=== PATIENT | female | born 1990 | race Caucasian/White ===

== ENCOUNTER 2021-05-24 19:06 | Emergency (ER) | payer SELFPAY ==
[~2021-05-24] VITALS: Ht 165 cm; Wt 154.0 kg
[2021-05-24 19:56] LABS: BILIRUBIN,URINE NEGATIVE (NEGATIVE); COLOR,URINE RED; GLUCOSE, URINE (UA) NEGATIVE (NEGATIVE); KETONES,URINE NEGATIVE (NEGATIVE); LEUKOCYTE ESTERASE ,URINE NEGATIVE (NEGATIVE); NITRITE,URINE NEGATIVE (NEGATIVE); PROTEIN,URINE 1+ (NEGATIVE)
[2021-05-24] MEDS ORDERED: NS 100 ML (IVPB) BAG IV ONE (20:00)
[2021-05-24] MEDS ORDERED: IOHEXOL 350 MG/ML 150 ML (OMNIPAQUE 350) VIAL IV ONE (20:00)
[2021-05-24] MEDS ORDERED: CATHETER FLUSH 10 ML SYR IV PRN (20:00)
[2021-05-24] MEDS ORDERED: HOLD METFORMIN - RECEIVED CONTRAST 20 ML VIAL IV SCH (20:00)
[2021-05-24 20:12] LABS: CLARITY,URINE CLOUDY
[2021-05-24 20:13] LABS: AMORPHOUS SEDIMENT,UR FEW AMOR URATES /LPF; BACTERIA,URINE FEW /HPF; RBC,URINE >100 /HPF
[2021-05-24 20:21] LABS: BASOPHILS # (AUTO) 0.1 10^3/uL (0.0-0.1); BASOPHILS % (AUTO) 1 % (0-10); EOSINOPHILS # (AUTO) 0.2 10^3/uL (0.0-0.3); EOSINOPHILS % (AUTO) 2 % (0-10); HEMATOCRIT 44 % (35-52); LYMPHOCYTES % (AUTO) 37 % (12-44); MEAN CORPUSCULAR HEMOGLOBIN 28 pg (25-34); MEAN CORPUSCULAR HGB CONC 34 g/dL (32-36); MEAN CORPUSCULAR VOLUME 83 fL (80-99); MEAN PLATELET VOLUME 10.8 fL (9.0-12.2); MONOCYTES # (AUTO) 0.6 10^3/uL (0.0-1.0); MONOCYTES % (AUTO) 7 % (0-12); NEUTROPHILS # (AUTO) 4.3 10^3/uL (1.8-7.8); NEUTROPHILS % (AUTO) 54 % (42-75); PLATELET COUNT 277 10^3/uL (130-400); WHITE BLOOD COUNT 8.1 10^3/uL (4.3-11.0)
[2021-05-24 20:51] LABS: ALANINE AMINOTRANSFERASE 33 U/L (0-55); ALBUMIN 4.6 GM/DL (3.2-4.5); ALKALINE PHOSPHATASE 84 U/L (40-136); BILIRUBIN,TOTAL 0.5 MG/DL (0.1-1.0); BUN/CREATININE RATIO 29; CALCIUM 9.4 MG/DL (8.5-10.1); CARBON DIOXIDE 23 MMOL/L (21-32); CHLORIDE 104 MMOL/L (98-107); CREATININE SERUM 0.58 MG/DL (0.60-1.30); GFR ESTIMATED 126; GLUCOSE 96 MG/DL (70-105); SODIUM 140 MMOL/L (135-145); TOTAL PROTEIN 7.7 GM/DL (6.4-8.2)
--- NOTE | 2021-05-24 20:57 | Diagnostic Imaging Report ---
EXAMINATION: CT abdomen and pelvis with and without intravenous contrast. TECHNIQUE: Precontrast acquisitions were acquired through the abdomen and pelvis. Multiple contiguous axial images were obtained through the abdomen and pelvis after the administration of intravenous contrast. All CT scans use one or more of the following dose optimizing techniques: automated exposure control, MA and/or KvP adjustment based on patient size and exam type or iterative reconstruction. HISTORY: Menorrhagia for 6 months COMPARISON: None available. FINDINGS: Lung bases: The lung bases are clear. Solid organs: The liver is normal without focal lesion. The gallbladder is normal. There is no biliary ductal dilation. Pancreas is normal. Spleen is normal. Adrenal glands are normal. The kidneys are normal without hydronephrosis. Bowel: The stomach and small bowel are normal without obstruction. The colon and appendix are normal. Peritoneum: There is no intraperitoneal free fluid or free air. No suspicious lymphadenopathy. Vasculature: Normal without aneurysm. Musculoskeletal: Degenerative changes of the spine without suspicious osseous lesion or compression fracture. Pelvis: The uterus and adnexa are normal. The urinary bladder is normal. IMPRESSION: No acute abnormality in the abdomen or pelvis. Dictated by: Dictated on workstation # [id number]
--- NOTE | 2021-05-24 21:01 | ED General ---
General Chief Complaint: General Problems/Pain Stated Complaint: LOWER BACK/ABD PAIN Nursing Triage Note: Patient c/o abd/back pain x2 days. Reports she has had her period for 6 months straight and has been seen by a physician w/ no change in bleeding. History of Present Illness Date Seen by Provider: May 24, 2021 Time Seen by Provider: 19:15 Initial Comments 30 yr F is here with c/o continuous menstrual bleeding for the past 6 months. Pt began having lower abdominal pain and back pain for the past 2 days. Pt changes approximately 8 or more sanitary napkins per day. Pt does not have a PCP or MARKETING OUTREACH COORDINATOR, so she has not seen a doctor at all. Denies chest pain, fever, diarrhea, dysuria, shortness of breath. Allergies and Home Medications Allergies Coded Allergies: No Known Drug Allergies (Unverified , 05/24/21) Patient Home Medication List Home Medication List Reviewed: Yes Review of Systems Review of Systems Constitutional: no symptoms reported EENTM: no symptoms reported Respiratory: no symptoms reported Cardiovascular: no symptoms reported Gastrointestinal: RLQ, LLQ, abdominal pain (RLQ/ LLQ) Genitourinary: hematuria : No Musculoskeletal: no symptoms reported Skin: no symptoms reported Psychiatric/Neurological: No Symptoms Reported Hematologic/Lymphatic: No Symptoms Reported Immunological/Allergic: no symptoms reported Past Reefcdw-Mwtydi-Fvmjco Hx Patient Social History Tobacco Use?: No Use of E-Cig and/or Vaping dev: No Substance use?: No Alcohol Use?: No Pt feels they are or have been: No Past Medical History Last Menstrual Period: May 24, 2021 Physical Exam Vital Signs Vital Signs - First Documented 05/24/21 19:10 Temp 36.1 Pulse 102 Resp 18 B/P (MAP) 151/92 (111) Pulse Ox 100 O2 Delivery Room Air Capillary Refill : Less Than 3 Seconds Height, Weight, BMI Height: '" Weight: lbs. oz. kg; 56.00 BMI Method: General Appearance: No Apparent Distress, Obese HEENT: PERRL/EOMI Neck: Full Range of Motion, Non Tender, Supple Respiratory: Chest Non Tender, Lungs Clear, Normal Breath Sounds Cardiovascular: Regular Rate, Rhythm, No Edema Gastrointestinal: Normal Bowel Sounds, Non Tender, Soft Back: No CVA Tenderness, Other (low backpain which corresponds anteriorly with pelvic pain) Extremity: Non Tender Neurologic/Psychiatric: Alert, Oriented x3, No Motor/Sensory Deficits Skin: Normal Color Lymphatic: No Adenopathy Progress/Results/Core Measures Suspected Sepsis SIRS Temperature: Pulse: 102 Respiratory Rate: 18 Laboratory Tests 05/24/21 20:13: White Blood Count 8.1 Blood Pressure 151 /92 Mean: 111 Laboratory Tests 05/24/21 20:13: Creatinine 0.58L, Platelet Count 277, Total Bilirubin 0.5 Results/Orders Lab Results Laboratory Tests Test 05/24/21 19:10 05/24/21 20:13 Range/Units Urine Color RED H Urine Clarity CLOUDY H Urine pH 7.0 5-9 Urine Specific Amity 1.025 H 1.016-1.022 Urine Protein 1+ H NEGATIVE Urine Glucose (UA) NEGATIVE NEGATIVE Urine Ketones NEGATIVE NEGATIVE Urine Nitrite NEGATIVE NEGATIVE Urine Bilirubin NEGATIVE NEGATIVE Urine Urobilinogen 0.2 < = 1.0 MG/DL Urine Leukocyte Esterase NEGATIVE NEGATIVE Urine RBC (Auto) 3+ H NEGATIVE Urine RBC >100 H /HPF Urine WBC 2-5 /HPF Urine Squamous Epithelial Cells 2-5 /HPF Urine Crystals PRESENT H /LPF Urine Amorphous Sediment FEW REBEKAH URATES H /LPF Urine Bacteria FEW H /HPF Urine Casts NONE /LPF Urine Mucus SMALL H /LPF Urine Culture Indicated NO Urine Test NEGATIVE NEGATIVE White Blood Count 8.1 4.3-11.0 10^3/uL Red Blood Count 5.35 H 3.80-5.11 10^6/uL Hemoglobin 15.0 11.5-16.0 g/dL Hematocrit 44 35-52 % Mean Corpuscular Volume 83 80-99 fL Mean Corpuscular Hemoglobin 28 25-34 pg Mean Corpuscular Hemoglobin Concent 34 32-36 g/dL Red Cell Distribution Width 13.0 10.0-14.5 % Platelet Count 277 130-400 10^3/uL Mean Platelet Volume 10.8 9.0-12.2 fL Immature Granulocyte % (Auto) 0 % Neutrophils (%) (Auto) 54 42-75 % Lymphocytes (%) (Auto) 37 12-44 % Monocytes (%) (Auto) 7 0-12 % Eosinophils (%) (Auto) 2 0-10 % Basophils (%) (Auto) 1 0-10 % Neutrophils # (Auto) 4.3 1.8-7.8 10^3/uL Lymphocytes # (Auto) 3.0 1.0-4.0 10^3/uL Monocytes # (Auto) 0.6 0.0-1.0 10^3/uL Eosinophils # (Auto) 0.2 0.0-0.3 10^3/uL Basophils # (Auto) 0.1 0.0-0.1 10^3/uL Immature Granulocyte # (Auto) 0.0 0.0-0.1 10^3/uL Sodium Level 140 135-145 MMOL/L Potassium Level 4.0 3.6-5.0 MMOL/L Chloride Level 104 98-107 MMOL/L Carbon Dioxide Level 23 21-32 MMOL/L Anion Gap 13 5-14 MMOL/L Blood Urea Nitrogen 17 7-18 MG/DL Creatinine 0.58 L 0.60-1.30 MG/DL Estimat Glomerular Filtration Rate 126 BUN/Creatinine Ratio 29 Glucose Level 96 70-105 MG/DL Calcium Level 9.4 8.5-10.1 MG/DL Corrected Calcium 8.5-10.1 MG/DL Magnesium Level 2.0 1.6-2.4 MG/DL Total Bilirubin 0.5 0.1-1.0 MG/DL Aspartate Amino Transf (AST/SGOT) 17 5-34 U/L Alanine Aminotransferase (ALT/SGPT) 33 0-55 U/L Alkaline Phosphatase 84 40-136 U/L Total Protein 7.7 6.4-8.2 GM/DL Albumin 4.6 H 3.2-4.5 GM/DL My Orders Orders - SONIA RAYO MD Ua Culture If Indicated (05/24/21 19:43) Cbc With Automated Diff (05/24/21 19:43) Comprehensive Metabolic Panel (05/24/21 19:43) Hcg,Qualitative Urine (05/24/21 19:43) Magnesium (05/24/21 19:43) Ct Abdomen/Pelvis W Wo (05/24/21 19:43) Iohexol Injection (Omnipaque 350 Mg/Ml 1 (05/24/21 20:00) Received Contrast (Hold Metformin- Contr (05/24/21 20:00) Sodium Chloride Flush (Catheter Flush Sy (05/24/21 20:00) Ns (Ivpb) (Sodium Chloride 0.9% Ivpb Bag (05/24/21 20:00) Toradol 15 Mg Ivp (05/24/21 21:30) Medications Given in ED Current Medications Medications Dose Ordered Sig/Cheri Route Start Time Stop Time Status Last Admin Dose Admin Iohexol 150 ml ONCE ONCE IV 05/24/21 20:00 05/24/21 20:01 DC 05/24/21 20:35 125 ML Sodium Chloride 10 ml NEEDED PRN IV 05/24/21 20:00 05/24/21 20:35 10 ML Sodium Chloride 100 ml ONCE ONCE IV 05/24/21 20:00 05/24/21 20:01 DC 05/24/21 20:35 100 ML Vital Signs/I&O 05/24/21 19:10 Temp 36.1 Pulse 102 Resp 18 B/P (MAP) 151/92 (111) Pulse Ox 100 O2 Delivery Room Air Capillary Refill : Less Than 3 Seconds Blood Pressure Mean: 111 Progress Note : Progress Note 1. MENORRHAGIA WITH PELVIC PAIN: - CT ABD WITH CONTRAST: - Labs normal, with normal Hb. - UA unremarkable except RBC's - Make an appointment with PCP and MARKETING OUTREACH COORDINATOR SCOTT Stay hydrated, weight loss NSAID prn PAIN -The patient was seen in the ED, and treated appropriately to presentation at a specific point in time. Patient is informed that there is a possibility that disease and illness can evolve and change in acuity rapidly or slowly after patient is discharged from the ER. Precautionary advice given to the patient for immediate return to ER if symptoms worsen or do not resolve, and to seek emergency care sooner rather than later. Pt also advised on the importance of PCP follow up and compliance with management and follow up plan. Pt verbally expressed understanding. Diagnostic Imaging Diagonstic Imaging: CT Plain Films/CT/US/NM/MRI: abdomen Comments [place] NAME: LUDIN TRAVIS [facility] REC#: [id number] PT STATUS: REG ER : 1990 PHYSICIAN: SONIA RAYO MD ADMIT DATE: 05/24/21/ER FS Signed Date of Exam:05/24/21 CT ABDOMEN/PELVIS W WO EXAMINATION: CT abdomen and pelvis with and without intravenous contrast. TECHNIQUE: Precontrast acquisitions were acquired through the abdomen and pelvis. Multiple contiguous axial images were obtained through the abdomen and pelvis after the administration of intravenous contrast. All CT scans use one or more of the following dose optimizing techniques: automated exposure control, MA and/or KvP adjustment based on patient size and exam type or iterative reconstruction. HISTORY: Menorrhagia for 6 months COMPARISON: None available. FINDINGS: Lung bases: The lung bases are clear. Solid organs: The liver is normal without focal lesion. The gallbladder is normal. There is no biliary ductal dilation. Pancreas is normal. Spleen is normal. Adrenal glands are normal. The kidneys are normal without hydronephrosis. Bowel: The stomach and small bowel are normal without obstruction. The colon and appendix are normal. Peritoneum: There is no intraperitoneal free fluid or free air. No suspicious lymphadenopathy. Vasculature: Normal without aneurysm. Musculoskeletal: Degenerative changes of the spine without suspicious osseous lesion or compression fracture. Pelvis: The uterus and adnexa are normal. The urinary bladder is normal. IMPRESSION: No acute abnormality in the abdomen or pelvis. Dictated by: Dictated on workstation # [id number] Dict: 05/24/212051 Trans: 05/24/212056 [facility] [id number] Interpreted by: JERRY SOLARES DO Electronically signed by: JERRY SOLARES DO 05/24/212056 Departure Impression Primary Impression: Pelvic cramping Additional Impression: Menorrhagia with irregular cycle Disposition: 01 HOME, SELF-CARE Condition: Stable Departure-Patient Inst. Referrals: NO,LOCAL PHYSICIAN (PCP/Family) Primary Care Physician Patient Instructions: Heavy Periods ED, Bleeding Between Periods, Pelvic Pain ED Add. Discharge Instructions: Make an appointment with PCP and MARKETING OUTREACH COORDINATOR SCOTT Stay hydrated, weight loss NSAID prn PAIN All discharge instructions reviewed with patient and/or family. Voiced understanding. Work/School Note: Work Release Form Date Seen in the Emergency Department: May 24, 2021 Return to Work: May 27, 2021 SONIA RAYO MD May 24, 2021 21:01
[2021-05-24] MEDS ORDERED: KETOROLAC 30 MG/ML VIAL IV ONE (21:30)
[2021-05-24 21:38] VITALS: BP 154/92
== END 2021-05-24 21:39 | disposition home or self-care (01) ==
LOC: ER FS 19:08
DX: N92.0 Excessive and frequent menstruation with regular cycle (principal); E66.9 Obesity, unspecified; Z68.43 Body mass index [BMI] 50.0-59.9, adult
CPT/HCPCS: 36415; 74178; 80053; 81000; 83735; 84703; 85025; Q9967

== ENCOUNTER 2022-01-17 14:56 | Emergency (ER) | payer SELFPAY ==
[~2022-01-17] VITALS: Ht 165 cm; Wt 166.0 kg
[2022-01-17] MEDS ORDERED: ANTACID SUSP 30 ML UDC (MYLANTA) PO ONE (15:30)
[2022-01-17] MEDS ORDERED: LIDOCAINE 2% VISCOUS 15 ML UDC PO ONE (15:30)
--- NOTE | 2022-01-17 15:33 | ED General ---
General Chief Complaint: Abdominal/GI Problems Stated Complaint: SOB Nursing Triage Note: PT HAS BEEN HAVING REFLUX AND BURNING X 3 DAYS. SHE REPORTS HER ESOPHAGUS AND THROAT BURN SOMETIMES TOO. Source of Information: Patient History of Present Illness Date Seen by Provider: Jan 17, 2022 Time Seen by Provider: 14:59 Initial Comments 31-year-old female presenting with complaints of 3 days of burning and pain in her middle of the chest. She states it feels like a time she swallows something that her esophagus is burning and getting narrow. She has not been eating or drinking very much because of the pain with swallowing. She denies having symptoms like this previously. She has no fever, chills, cough, shortness of breath, abdominal pain, nausea, vomiting, pain with urination, change in her bowels. Timing/Duration: 3-4 Days Severity: Severe Modifying Factors: worse with Eating Associated Systoms: No Cough, No Diaphoresis, No Fever/Chills, No Headaches, No Loss of Appetite, No Malaise, No Nausea/Vomiting, No Rash, No Seizure, No Shortness of Air, No Syncope, No Weakness Allergies and Home Medications Allergies Coded Allergies: No Known Drug Allergies (Unverified , 05/24/21) Patient Home Medication List Home Medication List Reviewed: Yes Pantoprazole Sodium (Pantoprazole Sodium) 40 Mg Tablet.dr, 40 MG PO DAILY Prescribed by: LINDA LIMA on 01/17/221555 Sucralfate (Carafate) 1 Gram Tablet, 1 GM PO QID Prescribed by: LINDA LIMA on 01/17/221555 Review of Systems Review of Systems Constitutional: No chills, No fever EENTM: no symptoms reported Respiratory: no symptoms reported Cardiovascular: see HPI Gastrointestinal: No abdominal pain, No diarrhea, No nausea, No vomiting Genitourinary: No dysuria, No frequency, No hematuria Musculoskeletal: no symptoms reported Skin: No rash Psychiatric/Neurological: Anxiety Past Ksfndex-Xpxjak-Gnfccv Hx Patient Social History Tobacco Use?: No Use of E-Cig and/or Vaping dev: No Substance use?: No Alcohol Use?: No Pt feels they are or have been: No Immunizations Up To Date First/Initial COVID19 Vaccinat: 2020 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 oz. kg; 60.00 BMI Method: General Appearance: No Apparent Distress, Obese HEENT: PERRL/EOMI, Pharynx Normal Neck: Full Range of Motion, Normal Inspection, Non Tender, Supple Respiratory: Chest Non Tender, Lungs Clear, Normal Breath Sounds, No Accessory Muscle Use, No Respiratory Distress Cardiovascular: Normal Peripheral Pulses, Tachycardia (104 heart rate on my exam) Gastrointestinal: Normal Bowel Sounds, No Pulsatile Mass, Non Tender, Soft Extremity: Normal Capillary Refill, Normal Inspection, No Pedal Edema Neurologic/Psychiatric: Alert, Oriented x3, vocational rehabilitation teacher II-XII Norm as Tested Skin: Normal Color, Warm/Dry Progress/Results/Core Measures Suspected Sepsis SIRS Temperature: Pulse: 120 Respiratory Rate: 16 Blood Pressure 162 /103 Mean: 122 Results/Orders My Orders Orders - LINDA LIMA MD Lidocaine 2% Viscous 15 Ml (Xylocaine Vi (01/17/22 15:30) Antacid Suspension (Mylanta Suspension (01/17/22 15:30) Medications Given in ED Current Medications Medications Dose Ordered Sig/Cheri Route Start Time Stop Time Status Last Admin Dose Admin Al Hydrox/Mg Hydrox/Simethicone 30 ml ONCE ONCE PO 01/17/22 15:30 01/17/22 15:31 DC 01/17/22 15:22 30 ML Lidocaine HCl 15 ml ONCE ONCE PO 01/17/22 15:30 01/17/22 15:31 DC 01/17/22 15:22 15 ML Vital Signs/I&O 01/17/22 01/17/22 15:00 15:44 Temp 36.2 36.2 Pulse 120 120 Resp 16 16 B/P (MAP) 162/103 (122) 162/103 Pulse Ox 99 99 O2 Delivery Room Air Room Air Capillary Refill : Less Than 3 Seconds Blood Pressure Mean: 122 Progress Note #1: Progress Note Try GI cocktail to see if that helps the burning and sharp pain with swallowing. If this is helping will continue carafate and pantoprazole with encouragement to see/establish with PCP. If not helping will check labs and chest xray. Progress Note #2: Progress Note Patient felt that her symptoms were improved after drinking the GI cocktail. She was not having any new symptoms. Counseled on treatment for possible GERD with esophagitis by taking Carafate and Protonix. Encouraged to follow-up with and establish care with a primary care clinic. Given information for the [facility]. She may still need an EGD or scope to look for scarring or narrowing of the esophagus. Departure Impression Primary Impression: Esophagitis Additional Impression: GERD with esophagitis Qualified Codes: K21.00 - Gastro-esophageal reflux disease with esophagitis, without bleeding Disposition: HOME, SELF-CARE Condition: Stable Departure-Patient Inst. Decision time for Depature: 15:52 Referrals: NO,LOCAL PHYSICIAN (PCP) Primary Care Physician [facility] Patient Instructions: Acid Reflux, Adult and Adolescent ED, Ulcer and Gastritis Diet Add. Discharge Instructions: Follow a liquid or bland diet for next several days. Take medicine for acid and esophagus irritation. Call or get established with clinic for primary care. They may need to set you up for a scope where the surgeon runs a camera down your throat and stomach to look for ulcers and irritation. Call [phone] to reach the [facility] clinic to get established with care. All discharge instructions reviewed with patient and/or family. Voiced understanding. Scripts Pantoprazole Sodium (Pantoprazole Sodium) 40 Mg Tablet.dr 40 MG PO DAILY for Gastritis/Esophagitis for 30 Days, #30 TAB 0 Refills Prov: LINDA LIMA MD 01/17/22 Sucralfate (Carafate) 1 Gram Tablet 1 GM PO QID for gastritis/esophagitis for 10 Days, #40 TAB 0 Refills Dissolve medicine in 1-2 teaspoons of water and drink as slurry. Prov: LINDA LIMA MD 01/17/22 LINDA LIMA MD Jan 17, 2022 15:33
[2022-01-17 15:44] VITALS: BP 162/103
[2022-01-17] MEDS ORDERED: SUCR1TAB36 PO (15:56)
[2022-01-17] MEDS ORDERED: PANT40TA52 PO (15:56)
== END 2022-01-17 16:04 | disposition home or self-care (01) ==
LOC: EDUNIT# 14:56 → ER FS 14:59
DX: K21.00 Gastro-esophageal reflux disease with esophagitis, without bleeding (principal); E66.9 Obesity, unspecified; Z68.44 Body mass index [BMI] 60.0-69.9, adult; Z28.311 Partially vaccinated for COVID-19
CPT/HCPCS: 99283